=== PATIENT | male | born 1985 | race Caucasian/White ===

== ENCOUNTER 2018-03-05 18:58 | Emergency (ER) | payer SELFPAY ==
--- NOTE | 2018-03-05 20:44 | ER Document Report ---
ED General - General Chief Complaint: Fall Stated Complaint: FAL, NUMBNESS IN BOTH ARMS Time Seen by Provider: 03/05/18 20:32 Notes: Patient is a 32-year-old male that comes to the emergency department for chief complaint of a fall and head injury 2-1/2 days ago, he states that he fell forward into the bathtub and hit his head/face, he passed out. He states that when he awoke he had a lot of pain in his left shoulder area and numbness in his left arm, he states that he thought this would improve but it has not, it has worsened, now he has weakness and numbness in his left arm in addition to this he has started to go numb in his right. He reports intermittent headaches and nausea. He denies incontinence, back pain, fever, vomiting. He is currently completing azithromycin and prednisone for an upper respiratory infection. He denies any other daily medications. He smokes, drinks occasionally, reports a former history of heroin abuse. His tetanus is up-to- date within 2 years. - Related Data Allergies/Adverse Reactions: No Known Allergies Allergy (Verified 03/05/18 19:03) Past Medical History - General Information source: Patient - Social History Smoking Status: Current Every Day Smoker Frequency of alcohol use: Occasional Drug Abuse: Heroin Lives with: Spouse/Significant other Family History: Reviewed & Not Pertinent Musculoskeletal Medical History: Reports Hx Musculoskeletal Trauma - Cervical spine fracture - Immunizations Immunizations up to date: Yes Hx Diphtheria, Pertussis, Tetanus Vaccination: Yes Review of Systems - Review of Systems Constitutional: No symptoms reported EENT: No symptoms reported Cardiovascular: No symptoms reported Respiratory: No symptoms reported Gastrointestinal: No symptoms reported Genitourinary: No symptoms reported Male Genitourinary: No symptoms reported Musculoskeletal: See HPI Skin: No symptoms reported Hematologic/Lymphatic: No symptoms reported Neurological/Psychological: See HPI Physical Exam - Vital signs Vitals: Temp Pulse Resp BP Pulse Ox 98.3 F 70 16 139/86 H 99 03/05/18 19:10 03/05/18 19:10 03/05/18 19:10 03/05/18 19:10 03/05/18 19:10 - Notes Notes: GENERAL: Alert, interacts well. No acute distress. HEAD: Normocephalic, small abrasion the right face and over the left bridge of the nose. No swelling or open wounds. EYES: Pupils equal, round, and reactive to light. Extraocular movements intact. ENT: Oral mucosa moist, tongue midline. Oropharynx unremarkable. Airway patent. Nares patent, no nasal septal hematoma, TM's intact. NECK: Trachea midline. In immobilization collar. No gross abnormality noted. LUNGS: Clear to auscultation bilaterally, no wheezes, rales, or rhonchi. No respiratory distress. HEART: Regular rate and rhythm. No murmur ABDOMEN: Soft, non-tender. Non-distended. Bowel sounds present in all 4 quadrants. GENITOURINARY: Deferred EXTREMITIES: Left upper extremity weakness with weak explosives engineer, numbness especially in the fourth and fifth digits but also to some degree in the remaining fingers , inability to raise the arm up away and abduction, right arm range of motion is normal but there is numbness in the right thumb, remaining fingers and explosives engineer unremarkable. Lower extremity examination unremarkable. No edema, normal radial and dorsalis pedis pulses bilaterally. No cyanosis. BACK: No thoracic, lumbar midline tenderness. No signs of trauma. No saddle anesthesia, normal distal neurovascular exam. NEUROLOGICAL: Alert and oriented x3. Normal speech. [cranial nerves II through XII grossly intact]. See extremities note. PSYCH: Normal affect, normal mood. SKIN: Warm, dry, normal turgor. No rashes or lesions noted. Course - Re-evaluation Re-evalutation: Patient has difficulty lifting the left arm but more concerningly he has weak explosives engineer, numbness mainly in the medial aspect of the arm, also over the fingers. In addition to this he has numbness of the right thumb. He is reporting progressively worsening symptoms. Concern for cervical spinal injury/ compression. Remaining evaluation is unremarkable except for abrasions over the face from the fall. CAT scan of the head and neck show no acute abnormality. Patient was placed initially in a c-collar and will remain in a c-collar. We do not have MRI capability tonight over the weekend. Discussed with Dr. Johnson, recommends transfer for MRI capability and possible neurosurgery management. 03/05/18 23:05 Spoke with [facility] transfer center, initially query was placed through trauma but they declined based on the time period, awaiting callback. 03/05/18 23:[address] Jose, neurosurgery, he accepts patient for transfer. Patient is in agreement with this plan. 03/06/18 01:50 Transfer team is here, patient has been reevaluated at bedside, he has no current complaints, he was given medication for pain/soreness earlier. No significant change from prior. Stable for transport. - Vital Signs Vital signs: Temp Pulse Resp BP Pulse Ox 98.2 F 58 L 16 129/75 H 100 03/05/18 23:30 03/05/18 23:30 03/05/18 23:30 03/05/18 23:30 03/05/18 23:30 Discharge - Discharge Clinical Impression: Left upper extremity numbness, Right upper extremity numbness Neck injury Qualifiers: Encounter type: initial encounter Qualified Code(s): S19.9XXA - Unspecified injury of neck, initial encounter Head injury Qualifiers: Encounter type: initial encounter Qualified Code(s): S09.90XA - Unspecified injury of head, initial encounter Condition: Serious Disposition: [facility]
--- NOTE | 2018-03-05 21:16 | RADIOLOGY REPORT (SQ) ---
3 VIEWS OF THE LEFT SHOULDER HISTORY: fall, pain over left AC joint COMPARISON: None. FINDINGS: Bone mineralization is normal. No acute fracture is seen. Joint spaces are preserved. Soft tissues are unremarkable. IMPRESSION: No acute fracture.
--- NOTE | 2018-03-05 22:13 | RADIOLOGY REPORT (SQ) ---
CT BRAIN AND CERVICAL SPINE WITHOUT IV CONTRAST HISTORY: Trauma. COMPARISON: None. TECHNIQUE: CT scan of the brain and cervical spine without IV contrast. This exam was performed according to our departmental dose-optimization program, which includes automated exposure control, adjustment of the mA and/or kV according to patient size and/or use of iterative reconstruction technique. FINDINGS: BRAIN: The ventricles, cisterns, and sulci are age-appropriate. The rowell-white matter differentiation is preserved without evidence of acute infarction. No acute intracranial hemorrhage or extra-axial fluid collection is seen. No midline shift, mass effect, or hydrocephalus. No air-fluid levels are seen in the sinuses. No calvarial fracture. 1 cm calcified sebaceous cyst in the left frontal scalp region. CERVICAL SPINE: No acute fracture. Cervical alignment is maintained without static listhesis. Vertebral body heights and disc spaces are preserved. No advanced spinal canal stenosis. No prevertebral soft tissue swelling. IMPRESSION: 1. No acute intracranial abnormality. 2. No acute fracture or static listhesis of the cervical spine.
[2018-03-05] MEDS ORDERED: MORPHINE SULFATE 10 MG/ML INJ IV ONE (22:45)
[2018-03-06] MEDS ORDERED: MORPHINE SULFATE 10 MG/ML INJ IV ONE (00:53)
[2018-03-06] MEDS ORDERED: ONDANSETRON HCL INJ/PF 4 MG/2 ML SDV IV ONE (00:53)
[2018-03-06 02:00] VITALS: BP 147/96
== END 2018-03-06 02:00 | disposition short-term general hospital (02) ==
LOC: ER 18:58
DX: S19.9XXA Unspecified injury of neck, initial encounter (principal); S06.9X9A Unspecified intracranial injury with loss of consciousness of unspecified duration, initial encounter; S00.31XA Abrasion of nose, initial encounter; S00.81XA Abrasion of other part of head, initial encounter; M25.512 Pain in left shoulder; R51 Headache; W18.2XXA Fall in (into) shower or empty bathtub, initial encounter; R20.0 Anesthesia of skin; R53.1 Weakness; R11.0 Nausea; J06.9 Acute upper respiratory infection, unspecified; F17.200 Nicotine dependence, unspecified, uncomplicated
CPT/HCPCS: 96376; 99285; 96374; 96375; 73030; 70450; 72125; L0120; J2270 ×2; J2405

== ENCOUNTER 2018-05-10 22:11 | Emergency (ER) | payer SELFPAY ==
[2018-05-10] MEDS ORDERED: NORMAL SALINE 1000 ML 1,000 ML IV ONE (22:57)
[2018-05-10 23:41] LABS: ABSOLUTE BASOPHILS # (AUTO) 0.1 10^3/uL (0.0-0.2); ABSOLUTE LYMPHOCYTES (AUTO) 1.3 10^3/uL (0.5-4.7); ABSOLUTE MONOCYTES (AUTO) 0.8 10^3/uL (0.1-1.4); ABSOLUTE NEUT (AUTO) 9.2 10^3/uL (1.7-8.2); BASOPHILS % (AUTO) 0.8 % (0-2); EOSINOPHILS % (AUTO) 0.3 % (0-6); MEAN CORPUSCULAR HEMOGLOBIN 31.9 pg (27.0-33.4); MEAN CORPUSCULAR VOLUME 91 fl (80-97); MONOCYTES % (AUTO) 7.1 % (3-13); PLATELET COUNT 212 10^3/uL (150-450); RED BLOOD COUNT 4.38 10^6/uL (4.35-5.55); RED CELL DISTRIBUTION WIDTH 12.6 % (11.5-14.0); SEGMENTED NEUTROPHILS % (AUTO) 80.8 % (42-78); TOTAL CELLS COUNTED % (AUTO) 100 %; WHITE BLOOD COUNT 11.4 10^3/uL (4.0-10.5)
--- NOTE | 2018-05-10 23:45 | ER Document Report ---
ED Substance Abuse / Acc. OD - General Chief Complaint: Overdose Stated Complaint: POSSIBLE OVERDOSE Time Seen by Provider: 05/10/18 22:46 Notes: Patient is a 32-year-old male that comes to the emergency department for chief complaint of an overdose. Patient used heroin, patient states he remembers checking the time and it was about 915, he states at 930 he was being awakened by EMS, states that he thinks his friend called EMS after he used heroin and he states he is the same dose as times before, however he has not used in 6 months. Patient lives with his mental health advisor, states he is trying to stop using but he relapsed. He states that he has had some illness including cough, vomiting, chills at home but he has multiple sick family members as well. Patient denies suicide attempt, states that he was just trying to "get away from the stress". He denies SI or HI. TRAVEL OUTSIDE OF THE [place] IN LAST 30 DAYS: No - Related Data Allergies/Adverse Reactions: No Known Allergies Allergy (Verified 03/05/18 19:03) Past Medical History - General Information source: Patient, Relative, Emergency Med Personnel - Social History Smoking Status: Never Smoker Chew tobacco use (# tins/day): No Drug Abuse: Heroin Lives with: Family Family History: Reviewed & Not Pertinent Patient has suicidal ideation: No Patient has homicidal ideation: No Renal/ Medical History: Denies: Hx Peritoneal Dialysis Musculoskeletal Medical History: Reports Hx Musculoskeletal Trauma - Cervical spine fracture Psychiatric Medical History: Reports: Hx Depression - Immunizations Immunizations up to date: Yes Hx Diphtheria, Pertussis, Tetanus Vaccination: Yes Review of Systems - Review of Systems Constitutional: See HPI EENT: No symptoms reported Cardiovascular: See HPI Respiratory: See HPI Gastrointestinal: See HPI Genitourinary: No symptoms reported Male Genitourinary: No symptoms reported Musculoskeletal: No symptoms reported Skin: No symptoms reported Hematologic/Lymphatic: No symptoms reported Neurological/Psychological: No symptoms reported Physical Exam - Vital signs Vitals: Temp Pulse Resp BP Pulse Ox 98.8 F 103 H 18 146/86 H 99 05/10/18 22:15 05/10/18 22:15 05/10/18 22:15 05/10/18 22:15 05/10/18 22:15 - Notes Notes: GENERAL: Alert, interacts well. No acute distress. HEAD: Normocephalic, atraumatic. EYES: Pupils equal, round, and reactive to light. Extraocular movements intact. ENT: Oral mucosa moist, tongue midline. Oropharynx unremarkable. Airway patent. Nares patent, no nasal septal hematoma, TM's intact. NECK: Full range of motion. Supple. Trachea midline. LUNGS: Clear to auscultation bilaterally, no wheezes, rales, or rhonchi. No respiratory distress. HEART: Borderline tachycardia, normal rhythm. No murmur ABDOMEN: Soft, non-tender. Non-distended. Bowel sounds present in all 4 quadrants. GENITOURINARY: Deferred EXTREMITIES: Moves all 4 extremities spontaneously. No edema, normal radial and dorsalis pedis pulses bilaterally. No cyanosis. BACK: no cervical, thoracic, lumbar midline tenderness. No saddle anesthesia, normal distal neurovascular exam. NEUROLOGICAL: Alert and oriented x3. Normal speech. [cranial nerves II through XII grossly intact]. PSYCH: Normal affect, normal mood. SKIN: Pale and slightly moist skin Course - Re-evaluation Re-evalutation: Patient flushed, mildly diaphoretic, mildly tachycardic. Lungs clear. Abdomen soft and benign. He states he spent all day working outside before he went home and overdosed accidentally. EKG shows sinus tachycardia, borderline QTC, no T wave inversions or ST segment changes in consecutive leads. Chest x-ray with no obvious abnormality, report is still pending. CBC showing minimal leukocytosis, chemistry unremarkable. Influenza negative. Alcohol negative. I discussed at great length with the patient. I discussed how very chente he is that he survived tonight and other overdoses, I discussed the extreme long-term complications including various life-threatening infections and debilitating problems in addition to the extreme risks that if he continues to overdose he will eventually or have an anoxic brain injury. Patient states that he does understand this, he is grateful for the fact that he lived tonight, and he will try even harder to remain clean in the future. Patient has been monitored for 3 hours. He is requesting to leave. His ride is here. I discussed with his significant other the events of tonight after patient's gave me permission verbally, we all then discussed this at bedside. This was felt to be a back slide of the patient, he is earnest in his attempt to remain clean, they both deny any concerns of suicidal or homicidal ideations, events were accidental reportedly. They both request some nausea medication for resolving suspected viral gastroenteritis which multiple family members have. This was provided. She states she is very comfortable taking him home. I discussed with Dr. Page. Discussed follow-up and return precautions, patient has a very close already scheduled mental health appointment. Patient stable at time of discharge. - Vital Signs Vital signs: Temp Pulse Resp BP Pulse Ox 98.2 F 103 H 17 142/95 H 95 05/10/18 23:41 05/10/18 22:15 05/11/18 01:17 05/11/18 01:17 05/11/18 00:42 - Laboratory Result Diagrams: 05/10/18 23:30 05/10/18 23:30 Laboratory results interpreted by me: 05/10/18 05/10/18 23:30 23:30 WBC 11.4 H Seg Neutrophils % 80.8 H Lymphocytes % 11.0 L Absolute Neutrophils 9.2 H BUN 24 H Total Protein 8.8 H Albumin 5.6 H Discharge - Discharge Clinical Impression: Heroin abuse Accidental overdose Qualifiers: Encounter type: initial encounter Qualified Code(s): T50.901A - Poisoning by unspecified drugs, medicaments and biological substances, accidental (unin tentional), initial encounter Nausea and vomiting Qualifiers: Vomiting type: unspecified Vomiting Intractability: non-intractable Qualified Code(s): R11.2 - Nausea with vomiting, unspecified Condition: Stable Disposition: HOME, SELF-CARE Additional Instructions: You were fortunate to have survived the overdose tonight like you did. If you continue to use IV drugs they will kill you. Keep your follow-up with psychiatry as planned. You most likely have symptoms of a viral illness which is resolving time. Take Phenergan as needed for this, drink plenty of fluids and rest. Return if you worsen including difficulty breathing, uncontrolled vomiting, developing fevers, pain in your chest, or any other concerning or worsening symptoms. Prescriptions: Promethazine HCl [Phenergan 25 mg Tablet] 25 mg PO Q6H PRN #20 tablet PRN Reason:
[2018-05-10 23:54] LABS: ALANINE AMINOTRANSFERASE 45 U/L (21-72); ALBUMIN 5.6 g/dL (3.5-5.0); ALKALINE PHOSPHATASE 105 U/L (38-126); ANION GAP 15 (5-19); ASPARTATE AMINO TRANSFERASE 49 U/L (17-59); BILIRUBIN,DIRECT 0.3 mg/dL (0.0-0.4); BILIRUBIN,TOTAL 0.7 mg/dL (0.2-1.3); BLOOD UREA NITROGEN 24 mg/dL (7-20); CALCIUM 9.9 mg/dL (8.4-10.2); CARBON DIOXIDE 24 mmol/L (22-30); CHLORIDE 100 mmol/L (98-107); GLUCOSE 105 mg/dL (75-110); LIPASE 27.3 U/L (23-300); POTASSIUM 4.8 mmol/L (3.6-5.0); SODIUM 138.7 mmol/L (137-145); TOTAL PROTEIN 8.8 g/dL (6.3-8.2)
[2018-05-10 23:55] LABS: ALCOHOL < 10 mg/dL (NONE DETECTED)
[2018-05-11 00:15] LABS: A TYPE INFLUENZA AG NEGATIVE (NEGATIVE); B INFLUENZA AG NEGATIVE (NEGATIVE)
[2018-05-11 01:32] VITALS: BP 142/95
--- NOTE | 2018-05-11 07:56 | EKG REPORT ---
SEVERITY:- ABNORMAL ECG - SINUS TACHYCARDIA CONSIDER INFARCT, OLD PROLONGED QT INTERVAL : Confirmed by: Diony Shaver MD 11-May-2018 07:55:46
--- NOTE | 2018-05-11 08:12 | RADIOLOGY REPORT (SQ) ---
EXAM DESCRIPTION: CHEST SINGLE VIEW COMPLETED DATE/TIME: 05/10/2018 11:05 pm REASON FOR STUDY: cough, ? aspiration with overdose COMPARISON: None. EXAM PARAMETERS: NUMBER OF VIEWS: One view. TECHNIQUE: Single frontal radiographic view of the chest acquired. RADIATION DOSE: NA LIMITATIONS: None. FINDINGS: LUNGS AND PLEURA: No opacities, masses or pneumothorax. No pleural effusion. MEDIASTINUM AND HILAR STRUCTURES: No masses. Contour normal. HEART AND VASCULAR STRUCTURES: Heart normal in size. Normal vasculature. BONES: No acute findings. HARDWARE: None in the chest. OTHER: No other significant finding. IMPRESSION: 1. NO ACUTE RADIOGRAPHIC FINDING IN THE CHEST. TECHNICAL DOCUMENTATION: JOB ID: [id number] [employer]- All Rights Reserved Reading location - IP/workstation name: [email or web address]
== END 2018-05-11 01:34 | disposition home or self-care (01) ==
LOC: ER 22:11
DX: T40.1X1A Poisoning by heroin, accidental (unintentional), initial encounter (principal); R11.2 Nausea with vomiting, unspecified; R61 Generalized hyperhidrosis; R00.0 Tachycardia, unspecified
CPT/HCPCS: 93005; 99284; 96360; 36415; 80307; 83690; 85025; 80053; 87804; 71045; 93010; J7030